=== PATIENT | female | born 1955 | race Caucasian/White ===

== ENCOUNTER 2016-10-08 05:41 | Emergency (ER) | payer OTHER ==
[2016-10-08] MEDS ORDERED: SODIUM CHLORIDE 0.9% 1,000 ML IV STA (06:14)
[2016-10-08] MEDS ORDERED: ONDANSETRON 4 MG/2 ML VIAL IVP STA ×2 (06:14→08:02)
[2016-10-08] MEDS ORDERED: ONDANSETRON 4 MG/2 ML VIAL ONE ×2 (06:21→08:05)
== END 2016-10-08 08:29 | disposition home or self-care (01) ==
DX: K52.9 Noninfective gastroenteritis and colitis, unspecified (principal)

== ENCOUNTER 2017-12-18 22:38 | Outpatient (CLI) | payer OTHER ==
[2017-12-18 23:08] LABS: ALBUMIN 4.9 g/dL (3.2-5.5); ALBUMIN/GLOBULIN RATIO 1.7 (1.0-2.2); ALKALINE PHOSPHATASE 66 IU/L (42-121); ALT ALANINE AMINOTRANSFERASE 20 IU/L (10-60); AST ASPARTATE AMINOTRANSFERASE 26 IU/L (10-42); BILIRUBIN,TOTAL 0.6 mg/dL (0.2-1.0); BUN - BLOOD UREA NITROGEN 14 mg/dL (6-20); CALCIUM 9.6 mg/dL (8.5-10.3); CARBON DIOXIDE - CO2 29 mmol/L (21-32); CHLORIDE 99 mmol/L (101-111); CREATININE 0.8 mg/dL (0.4-1.0); GFR - MDRD 73 (>89); GLUCOSE 116 mg/dL (70-100); PHOSPHORUS 3.2 mg/dL (2.5-4.6); SODIUM 137 mmol/L (135-145); TOTAL PROTEIN 7.8 g/dL (6.7-8.2)
[2017-12-18 23:10] LABS: BILIRUBIN,DIRECT < 0.1 mg/dL (0.1-0.5)
== END 2017-12-18 22:39 | disposition home or self-care (01) ==
LOC: LAB 22:38
PROVIDERS: ATTEND Pain Medicine Pain Medicine
DX: M54.5 Low back pain (principal)
CPT/HCPCS: 36415; 80053; 80069; 80076

== ENCOUNTER 2024-02-26 02:23 | Emergency (ER) | payer MEDICARE, OTHER ==
[2024-02-26 03:04] LABS: BASOPHILS % (AUTO) 0.3 %; EOSINOPHILS # (AUTO) 0.2 10^3/uL (0.0-0.7); EOSINOPHILS % (AUTO) 1.4 %; HCT - HEMATOCRIT 40.6 % (37.0-47.0); HGB - HEMOGLOBIN 13.2 g/dL (12.0-16.0); LYMPHOCYTES # (AUTO) 3.3 10^3/uL (1.5-3.5); LYMPHOCYTES % (AUTO) 28.4 %; MEAN CORPUSCULAR HEMOGLOBIN 28.8 pg (27.0-31.0); MEAN CORPUSCULAR HGB CONC 32.5 g/dL (32.0-36.0); MEAN CORPUSCULAR VOLUME 88.6 fL (81.0-99.0); MEAN PLATELET VOLUME 8.9 fL (7.9-10.8); MONOCYTES # (AUTO) 0.7 10^3/uL (0.0-1.0); MONOCYTES % (AUTO) 6.3 %; NEUTROPHILS # (AUTO) 7.4 10^3/uL (1.5-6.6); NEUTROPHILS % (AUTO) 63.3 %; PLT - PLATELET COUNT 266 10^3/uL (130-450); RED BLOOD COUNT 4.58 10^6/uL (4.20-5.40); RED CELL DISTRIBUTION WIDTH 13.2 % (12.0-15.0); WHITE BLOOD COUNT 11.6 x10^3/uL (4.8-10.8)
[2024-02-26 03:16] LABS: ALBUMIN 4.4 g/dL (3.2-5.5); ALBUMIN/GLOBULIN RATIO 1.6 (1.0-2.2); BILIRUBIN,TOTAL 0.2 mg/dL (0.2-1.0); CALCIUM 10.2 mg/dL (8.5-10.3); CREATININE 0.8 mg/dL (0.6-1.3); POTASSIUM 3.6 mmol/L (3.5-4.5); TOTAL PROTEIN 7.2 g/dL (6.4-8.9)
--- NOTE | 2024-02-26 03:20 | ED Physician Documentation ---
PD HPI CHEST PAIN - Stated complaint Stated Complaint: CHEST PX - Chief complaint Chief Complaint: Cardiac - History obtained from History obtained from: Patient - Additional information Additional information: 61-year-old woman, daily smoker, with family history of heart disease in presents with chest pain starting tonight and complaint of back pain from caring for her grandchildren. patient denies n/v, drew, dizziness, urinary sx, numbness or weakness. PD PAST MEDICAL HISTORY - Past Medical History Cardiovascular: High cholesterol Psych: Anxiety Musculoskeletal: Chronic back pain, Other - Past Surgical History Past Surgical History: Yes Ortho: Other /[employer]OR [employer]: Hysterectomy - Present Medications Home Medications: Ambulatory Orders Medication Instructions Recorded Confirmed Cetirizine [ZyrTEC] 10 mg PO BID 02/26/24 02/26/24 Cyclobenzaprine [Flexeril] 10 mg PO TID PRN 6 Days #20 tablet 02/26/24 Evening Hershey Oil [Evening 1,300 mg PO BID 02/26/24 02/26/24 Hershey] - Allergies Allergies/Adverse Reactions: Allergies Allergy/AdvReac Type Severity Reaction Status Date / Time azithromycin Allergy Anaphylaxis Verified 02/26/24 03:14 erythromycin base Allergy Unknown Verified 10/08/16 06:01 Penicillins Allergy Unknown Verified 02/26/24 03:14 polyethylene glycol Allergy Unknown Verified 10/08/16 06:01 [From Golytely] potassium chloride * Allergy Unknown Verified 10/08/16 06:01 [From Golytely] rofecoxib [From Vioxx] Allergy Unknown Verified 10/08/16 06:01 sodium [From Golytely] Allergy Unknown Verified 10/08/16 06:01 sodium bicarbonate * Allergy Unknown Verified 10/08/16 06:01 [From Golytely] sodium chloride Allergy Unknown Verified 10/08/16 06:01 [From Golytely] sodium sulfate * Allergy Unknown Verified 10/08/16 06:01 [From Golytely] - Social History Does the pt smoke?: No Smoking Status: Never smoker Does the pt drink ETOH?: No Does the pt have substance abuse?: No - Immunizations Immunizations are current?: Yes PD ED PE NORMAL - Vitals Vital signs reviewed: Yes - General General: Alert and oriented X 3, No acute distress, Well developed/nourished - HEENT HEENT: Atraumatic, PERRL, EOMI - Neck Neck: Supple, no meningeal sign - Cardiac Cardiac: RRR - Respiratory Respiratory: No respiratory distress, Clear bilaterally - Abdomen Abdomen: Non tender, Non distended - Derm Derm: Normal color, Warm and dry - Extremities Extremities: No deformity, Other (csm intact all extremities) Results - Vitals Vitals: Vital Signs - 24 hr 02/26/24 02:30 Temperature 36.6 C Heart Rate 93 Respiratory 16 Rate Blood Pressure 142/73 H O2 Saturation 100 Oxygen O2 Source Room air - EKG (time done) 0231 EKG releavant findings:: EKG personally interpreted by author of this note. Relevant findings are: Rate: Rate (enter#) (87) Rhythm: NSR [place]: Normal Intervals: Normal SD QRS: Normal Ischemia: Normal ST segments - Labs Labs: Laboratory Tests 02/26/24 02/26/24 02:51 02:51 WBC 11.6 H RBC 4.58 Hgb 13.2 Hct 40.6 MCV 88.6 MCH 28.8 MCHC 32.5 RDW 13.2 Plt Count 266 MPV 8.9 Neut # (Auto) 7.4 H Lymph # (Auto) 3.3 [place] # (Auto) 0.7 Eos # (Auto) 0.2 Baso # (Auto) 0.0 Absolute Nucleated RBC 0.00 Nucleated RBC % 0.0 Sodium 142 Potassium 3.6 Chloride 105 Carbon Dioxide 31 Anion Gap 6.0 BUN 15 Creatinine 0.8 Estimated GFR (MDRD) 71 L Glucose 113 H Calcium 10.2 Total Bilirubin 0.2 AST 23 ALT 21 Alkaline Phosphatase 63 Troponin I High Sens 4.0 Total Protein 7.2 Albumin 4.4 Globulin 2.8 Albumin/Globulin Ratio 1.6 Lipase 19 PD Medical Decision Making - ED course ED course: 61-year-old woman presents with low back pain and chest pain tonight, with negative workup in the emergency department. Heart score 3 (age, risk factors). Plan to discharge home to follow-up outpatient with her primary care provider. Return precautions given. Departure - Departure Disposition: 01 Home, Self Care Clinical Impression: Chest pain, Back pain Condition: Stable Instructions: ED Chest Pain Atypical Unkn Cause, ED Neck Back Pain General Prescriptions: Cyclobenzaprine [Flexeril] 10 mg PO TID PRN 6 Days #20 tablet PRN Reason: Spasms Comments: You were seen in the emergency department for chest and back pain. Flexeril was sent to [facility]. Please follow-up with your primary care provider and return to the emergency department if you have any new or worsening symptoms or other concerns. Forms: PCP List
[2024-02-26] MEDS: CYCLOBENZAPRINE 10 MG TABLET PO STA (04:13)
[2024-02-26 04:21] VITALS: BP 130/72; O2SAT 99
--- NOTE | 2024-02-26 12:01 | XRAY Report ---
PROCEDURE: Chest 1V INDICATIONS: Chest Pain TECHNIQUE: One view of the chest was acquired. COMPARISON: None. FINDINGS: Surgical changes and devices: None. Lungs and pleura: No pleural effusions or pneumothorax. Lungs are clear. Mediastinum: Mediastinal contours appear normal. Heart size is normal. Bones and chest wall: No suspicious bony lesions. Overlying soft tissues appear unremarkable. IMPRESSION: No acute cardiopulmonary process. The above findings are concordant with preliminary report. Reviewed by: Taylor Medina MD on 02/26/2024 12:00 PM PDT Approved by: Taylor Medina MD on 02/26/2024 12:00 PM PDT Station ID: [id number]
== END 2024-02-26 04:21 | disposition home or self-care (01) ==
LOC: ED 02:23
DX: R07.9 Chest pain, unspecified (principal); M54.50 Low back pain, unspecified; F17.200 Nicotine dependence, unspecified, uncomplicated
CPT/HCPCS: 36415; 71045; 80053; 83690; 84484; 85025; 93005; 99284; A9270